=== PATIENT | male | born 1955 | race Caucasian/White ===

== ENCOUNTER 2023-08-06 07:39 | Day surgery (SDC) | payer OTHER ==
[~2023-08-06 07:39] MED LIST: ACET325; ALPR.25 PO; ATEN50 PO; CIPR500 PO; FAMO20 PO; HYDCHL25 PO; K-TAB ER20 MEQ PO; NAPR220; PROM12.5S; Promethazine12.5 M1 PO; TESTOSTERONE CREAM
== END 2023-08-06 22:49 | disposition home or self-care (01) ==
LOC: CT 07:39
DX: I20.89 Other forms of angina pectoris (principal)
CPT/HCPCS: 75574; Q9967

== ENCOUNTER 2023-12-15 09:52 | Day surgery (SDC) | payer OTHER ==
[~2023-12-15] VITALS: Ht 170.2 cm; Wt 102.0 kg
[~2023-12-15 09:52] MED LIST changes: +EPINEPhrine HCl 1 MG/ML 1ML Amp ONE; +LISINOPRIL-HCT1 EAC1 PO; +MELO7.5 PO; +propofoL 40 ML IV ONE
[2023-12-15] MEDS ORDERED: FentaNYL Citrate 50 MCG/ML 2 ML Injection ONE ×3 (10:03→12:27)
[2023-12-15] MEDS ORDERED: Lactated Ringer's 1,000 ML IV ONE ×2 (10:06→10:38)
[2023-12-15] MEDS ORDERED: NS 50 ML IV ONE (10:06)
[2023-12-15] MEDS ORDERED: CeFAZolin Sodium 2,000 MG VIAL ONE (10:06)
--- NOTE | 2023-12-15 11:00 | NUR ---
[facility] EVEN THOUGH PT TOOK MELOXICAM YESTERDAY OK TO PROCEED PER DR XIONG EVEN THOUGH PT TOOK A SIP OF WATER AT 0900
[2023-12-15] MEDS ORDERED: Phenylephrine HCl 100 MCG/ML-NS 10MLSYR (1MG/10ML) ONE (11:09)
[2023-12-15] MEDS ORDERED: Metoclopramide HCl 5MG / ML 2ML Vial ONE (11:24)
[2023-12-15] MEDS ORDERED: Dexamethasone Sod Phos 10 MG/ML 1ML VIAL ONE (11:24)
[2023-12-15] MEDS ORDERED: Ondansetron HCl 2 MG / ML 2ML Vial ONE (11:24)
--- NOTE | 2023-12-15 11:31 | NUR ---
12/15/23 1131 Yeni Johnson 10ML OF ROPIVACAINE 0.5% MIXED AND VERIFIED WITH 0.05ML OF EPI (1MG/ML) TO MAKE ROPIVACAINE WITH EPI 1:200,000 FOR INJECTION AT THE OPSITE BY DR BARR. 1ML OF EPI (1MG/ML) ADDED TO THE FIRST BAG OF IRRIGATION FLUID FOR USE AT OPSITE B DR BARR.
[2023-12-15] MEDS ORDERED: EPINEPhrine HCl 1 MG/ML 1ML Amp XX ONE (11:34)
[2023-12-15] MEDS ORDERED: Ropivacaine 0.5% HCl/Pf 5 MG/ML 20ML VIAL INJ ONE (11:34)
[2023-12-15] MEDS ORDERED: Ketorolac Tromethamine 30mg Vial ONE (11:36)
--- NOTE | 2023-12-15 11:59 | NUR ---
12/15/23 DANIKA LEROY PT WAS PLACED ON O2 VIA FACE TENT JUST AFTER ARRIVING IN PACU BREATHS WERE SHALLOW AND PT VERY DROWSY. COLORING IS GOOD AT THIS TIME. PT REMAINS VERY DROWSY BUT IS ABLE TO FOLLOW DIRECTIONS. WILL TRIAL TO 5L O2 SAT ON 10 L IS 95%
[2023-12-15 13:01] VITALS: BP 127/74
== END 2023-12-15 13:04 | disposition home or self-care (01) ==
LOC: ORSCSDS 09:52
PROVIDERS: Orthopaedic Surgery
PROC: 0SBD4ZZ Excision of Left Knee Joint, Percutaneous Endoscopic Approach (ICD-10-PCS; principal; 2023-12-15 11:00)
DX: S83.242A Other tear of medial meniscus, current injury, left knee, initial encounter (principal); I10 Essential (primary) hypertension; Z79.899 Other long term (current) drug therapy
CPT/HCPCS: 93005; 93010; J0171; J0690; J1100; J1885; J2371; J2405; J2704; J2765; J2795; J3010; J7120